=== PATIENT | male | born 1995 | race Caucasian/White ===

== ENCOUNTER 2020-06-19 17:10 | Emergency (ER) | payer OTHER ==
[~2020-06-19] VITALS: Ht 185.4 cm; Wt 74.0 kg
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
[2020-06-19] MEDS ORDERED: LEXAPRO20 MG PO (17:35)
[2020-06-19] MEDS ORDERED: HYDROXYZINE (17:35)
[2020-06-19] MEDS ORDERED: ACETAMINOPHEN 325 MG TAB PO ONE (18:00)
--- NOTE | 2020-06-19 18:02 | NUR ---
pt medicated and explained for headache and beginning fever, pt states, "i'm getting pissed off." pt states he only came for a scan and clenching face and hands and jaw, pt had facial twitching and broke eye contact. pt displays pending explosive behavior. told pt he could have his /girlfriend come into room to help calm pt, corporate bond trader here to take pt to ct, pt states he is going to his car first to get /girlfriend first. pt did return with said female. pt did appologize to nurse and corporate bond trader.
[2020-06-19] MEDS ORDERED: ACETAMINOPHEN 325 MG TAB ONE (18:06)
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
--- NOTE | 2020-06-19 18:59 | NUR ---
pt came out of room, "i'm tired of this shit." states he's waited too long and "you can call me with the results." pt displayed volatile behavior, angry with impending rage. staff concern for safety with pt behavior. pt with fist clenching. pt did apologize after acting act. again.
== END 2020-06-19 19:02 | disposition home or self-care (01) ==
LOC: FSED 17:30
DX: S00.83XA Contusion of other part of head, initial encounter (principal); R00.0 Tachycardia, unspecified; V57.5XXA Driver of pick-up truck or van injured in collision with fixed or stationary object in traffic accident, initial encounter; Y92.488 Other paved roadways as the place of occurrence of the external cause; F41.9 Anxiety disorder, unspecified; F17.210 Nicotine dependence, cigarettes, uncomplicated
CPT/HCPCS: 70450; 99283